=== PATIENT | female | born 1960 | race Caucasian/White ===

== ENCOUNTER → 2016-08-12 | Outpatient (CLI) | payer BC ==
[~2016-08-12] MED LIST: ALEVE220 M1 PO; ALLERGY RELIEF10 M3 PO; AMLODIPINE BESY10 MG PO; APAP500 PO; CENTRUM SILVER1 EAC1 PO; CIPROFLOXACIN500 M1 PO; FISH OIL 1,0001 EAC7 PO; LEVOTHYROXINE100 MC1 PO; NEURONTIN 300300 M1 PO; PRILOSEC40 MG PO; PROTONIX40 M1; TRAMADOL HCL50 MG PO; VENTOLIN HFA INH8 GM IH
== END ==
LOC: RAD 01:51
DX: Z12.31 Encounter for screening mammogram for malignant neoplasm of breast (principal); M17.0 Bilateral primary osteoarthritis of knee

== ENCOUNTER → 2017-10-14 | Outpatient (CLI) | payer BC | LOC: RAD 01:17 | DX: Z12.31 Encounter for screening mammogram for malignant neoplasm of breast (principal) ==

== ENCOUNTER → 2017-11-13 | Outpatient (CLI) | payer BC | LOC: ULTRA 08:33 | DX: E01.0 Iodine-deficiency related diffuse (endemic) goiter (principal) ==

== ENCOUNTER → 2018-10-13 | Outpatient (CLI) | payer BC | LOC: BC 08:37 | DX: Z12.31 Encounter for screening mammogram for malignant neoplasm of breast (principal); E04.2 Nontoxic multinodular goiter ==

== ENCOUNTER → 2018-11-19 | Outpatient (CLI) | payer BC | LOC: RAD 04:24 | DX: R92.8 Other abnormal and inconclusive findings on diagnostic imaging of breast (principal) ==

== ENCOUNTER → 2019-12-28 | Outpatient (CLI) | payer OTHER | LOC: BC 09:02 | PROVIDERS: ATTEND Family Medicine | DX: Z12.31 Encounter for screening mammogram for malignant neoplasm of breast (principal) ==

== ENCOUNTER 2020-01-06 09:31 | Emergency (ER) | payer OTHER ==
[~2020-01-06] VITALS: Ht 152.4 cm; Wt 78.0 kg
[2020-01-06] MEDS ORDERED: TRAMADOL 50 MG50 MG PO (12:00)
[2020-01-06 12:36] VITALS: BP 151/73
== END 2020-01-06 12:40 | disposition home or self-care (01) ==
LOC: ER 09:31
DX: S62.326A Displaced fracture of shaft of fifth metacarpal bone, right hand, initial encounter for closed fracture (principal); K21.9 Gastro-esophageal reflux disease without esophagitis; Z98.890 Other specified postprocedural states; Z90.711 Acquired absence of uterus with remaining cervical stump; Z79.2 Long term (current) use of antibiotics; Z79.899 Other long term (current) drug therapy; W18.09XA Striking against other object with subsequent fall, initial encounter; Y93.01 Activity, walking, marching and hiking; Y92.69 Other specified industrial and construction area as the place of occurrence of the external cause; Y99.8 Other external cause status

== ENCOUNTER → 2020-05-12 | Outpatient (CLI) | payer OTHER ==
[~2020-05-12] MED LIST changes: +TRAMADOL 50 MG50 MG PO
== END ==
LOC: LAB 12:18
PROVIDERS: ATTEND Nurse Practitioner
DX: Z20.822 Contact with and (suspected) exposure to COVID-19 (principal)